=== PATIENT | female | born 1955 | race Caucasian/White ===

== ENCOUNTER 2025-08-14 08:24 | Day surgery (SDC) | payer MEDICARE, OTHER, SELFPAY ==
[2025-08-14] VITALS (17 sets, daily range): BP systolic 91–137; BP diastolic 53–82; PULSE 64–79; RESP 12–16; TEMP 36.2–36.6; O2SAT 91–96; BMI 29.0
[2025-08-14] MEDS: EPINEPHrine 1 MG in SODIUM CHLORIDE IRRIG SOLUTION 3,000 ML 9003 MG IRRIGATION ×4 (08:30→09:30)
[2025-08-14] MEDS: LACTATED RINGERS 1000 ML 1,000 ML 100 ML IV (08:30)
[2025-08-14] MEDS: SODIUM CHLORIDE 0.9 % (FLUSH) 10 ML SYRINGE IVF (09:06)
[2025-08-14] MEDS: MIDAZOLAM HCL 1 MG/ML inj IVP (10:10)
--- NOTE | 2025-08-14 10:17 | SUR.PREOP ---
TIME?OUT:?1010 PT/libia cardenas RN/shirin escobar MDA?VERIFICATION?OF?SURGICAL?SITE,?PROCEDURE,?AND?CONSENT OBTAINED?PRIOR?TO?INVASIVE?PROCEDURE.
--- NOTE | 2025-08-14 10:49 | W.PM.H&PU ---
History & Physical Update History & Physical Update H&P Reviewed and patient assessed: No changes noted
[2025-08-14] MEDS: LACTATED RINGERS 1000 ML 1,000 ML 125 ML IV (11:28)
[2025-08-14] MEDS: EPINEPHrine 1 MG in SODIUM CHLORIDE IRRIG SOLUTION 3,000 ML 4503 MG IRRIGATION (12:05)
--- NOTE | 2025-08-14 12:35 | P.ORPRC_ITS ---
Procedure Note Date of procedure: 08/14/25 Procedure: PREOPERATIVE DIAGNOSES: 1. Right shoulder rotator cuff tear. 2. Right shoulder long head of biceps partial-thickness tearing 3. Right shoulder AC degenerative joint disease, primary, moderate-severe 4. Right shoulder labral tearing 5. Right shoulder subacromial impingement syndrome. POSTOPERATIVE DIAGNOSES: 1. Right shoulder rotator cuff tear. 2. Right shoulder long head of biceps partial-thickness tearing 3. Right shoulder AC degenerative joint disease, primary, moderate-severe 4. Right shoulder labral tearing 5. Right shoulder subacromial impingement syndrome. NAME OF OPERATION: 1. Right shoulder arthroscopic rotator cuff repair - upper border subscapularis and high-grade partial-thickness longitudinal splitting of the supraspinatus mid tendon 2. Right shoulder arthroscopic long head of biceps tenodesis 3. Right shoulder arthroscopic distal clavicle excision 4. Right shoulder arthroscopic limited glenohumeral debridement 5. Right shoulder arthroscopic bursectomy, subacromial decompression/partial acromioplasty. SURGEON: Jaskaran Redmond MD BILINGUAL SPEECH LANGUAGE PATHOLOGIST: Robbie Guerra PA-C. Of note, a skilled human resources assistant manager was critical for this case to aide in patient positioning, suture manipulation, arm positioning, instrument positioning, and closure. ANESTHESIA: General plus preoperative supraclavicular block. EBL: 25 mL IMPLANTS: Arthrex 4.75 mm BioComposite SwiveLock suture anchor (x1) COMPLICATIONS: None evident INDICATIONS: The patient is a pleasant, 69-year-old female who has experienced right shoulder pain that has been increasing in recent time. Physical exam and imaging were consistent with a rotator cuff tear. Given their findings, as well as the weakness and pain, and inadequate response to nonoperative management, recommendation was made for surgery. FINDINGS: Exam under anesthesia revealed stable shoulder with excellent range of motion. The diagnostic arthroscopy revealed healthy chondral surfaces of the glenohumeral joint. The Subscapularis tendon was torn and a partial-thickness manner involving the proximal 8-10 mm with mild-moderate retraction. The long head of the biceps tendon was partially torn through the bicipital groove region and also subluxed/borderline dislocated out of the bicipital groove. The superior rotator cuff tendon was found to be torn in a high-grade partial- thickness manner with longitudinal splitting through the mid tendon over the articular surface. The tuberosity attachment was still intact and strong. The labrum was degeneratively frayed in the anterior and superior aspects. No loose bodies were identified within the pouch or subscapularis recess. PROCEDURE: Following a thorough discussion of risks, benefits, and alternatives, consent was obtained and the right shoulder was marked. The patient was brought to the operating room and placed supine on the operating table. Induction of anesthesia was completed after preoperative supraclavicular block was administered in preop holding. Appropriate time out was performed identifying proper patient, site, and procedure. 2 g IV Ancef was administered within 1 hour of incision preoperatively. The right upper extremity was prepped and draped in the appropriate sterile fashion using ChloraPrep prep. This was after the patient was positioned in the beach chair with their head in neutral alignment and all bony prominences well padded. The shoulder was insufflated with 20mL of normal saline via an 18g spinal needle from a posterior approach. An 11 blade skin incision allowed a blunt trochar to be inserted and diagnostic arthroscopy to be performed with the findings as noted above. An anterior portal was established with an outside in technique. This allowed the probe to be inserted and confirm the diagnostic arthroscopic findings. The shaver was then inserted and allowed debridement of the anterior and superior labrum as well as the biceps stump after the biceps tenodesis was performed. Additionally, the long of the biceps was released from the bicipital tuberosity for arthroscopic tenodesis as it was incorporated into the subscapularis repair anchor. The stump was debrided with a shaver as noted. Following this, the upper border subscapularis was repaired after debriding the lesser tuberosity with the shaver and [place] cautery. Subscapularis was captured in horizontal mattress fashion with a fiber tape suture. The tails were brought to a single anchor in the lesser tuberosity with excellent reapproximation of the subscap tendon and good excursion/tension. Thereafter, the subacromial space was entered. Here, a complete bursectomy and partial acromioplasty/subacromial decompression was performed with a combination of radiofrequency ablator, the shaver, and a 5.5 mm bur. Additionally, distal clavicle excision was performed with the bur. 8 mm of distal clavicle was resected based on the with of our bur. Further inspection of the supraspinatus and infraspinatus rotator cuff was performed. [This identified the tear as noted above. The tuberosity was probed multiple times and in multiple different arm positions to ensure that the insertion site was strong. Indeed this was the case. However, the supraspina tus showed longitudinal splitting of the mid tendon, which is consistent with what identified on the MRI. Given this longitudinal splitting, it was felt prudent to consider repair with [id number] suturing. The shoulder was placed through range of motion and found to be stable. The rotator cuff was re-probed and found to be stable. Instruments were removed. Excess fluid was drained, closure performed with 4-0 Monocryl and Steri-Strips. Dressings were applied. Sling was applied. The patient was awoken from anesthesia and transferred to the PACU in stable condition. A skilled human resources assistant manager was critical for this case to aid in patient positioning, limb positioning, skill to manipulate arthroscopic instruments and camera, suture management, patient safety, and closure. PLAN: 1. Elbow, forearm, wrist and digit range of motion as tolerated. 2. Encouraged ice. 3. Oxycodone for pain as needed. 4. Sling at all times except for ROM and showering. 5. Follow up with PA visit in 1-2 weeks for wound check. Initiate physical therapy following that visit for passive range of motion. Initiate active assisted range of motion at 4-6 weeks. May do pendulums now.
--- NOTE | 2025-08-14 12:38 | W.PM.NB ---
Nerve Block Nerve Block Time Seen by Provider: 10:10 Date Seen: 08/14/25 Type of block requested by surgeon for post-operative analgesia: supraclavicular Side: right Time out performed: Yes Verification of patient name: Yes Verification of date of : Yes Site marking: site marked Name of person performing procedure: Emeka Continuous monitoring Was continuous monitoring of O2 sat, B/P, vehicle monitor technician, recorded every 15 minutes?: Yes Procedure Checklist: sterile prep, needles and gloves Ultrasound guided. Images saved: Yes Medications given in 5ml increments after negative aspiration: Ropivicaine %: 0.5 mL: 20 Needle gauge: 22 Precedex (mcg): 25 Patient tolerated procedure well: Yes Block Charges Block Charge (with Pro Fee): Brachial Plexus Use of Ultrasound Machine for Block: Yes- US Guidance/pain block
--- NOTE | 2025-08-14 12:39 | P.ANES_ITS ---
Anesthesia Charges Start Date/Time Anesthesia Start Date: 08/14/25 Anesthesia Start Time: 10:38 Stop Date/Time Anesthesia Stop Date: 08/14/25 Anesthesia Stop Time: 13:01 Summary Extremes of Age - Over 70 or under 1: MDA Coding CPT Codes CPT Codes: ANESTH SURGERY OF SHOULDER - 96358 ([id number]) P3 - PATIENT W/SEVERE SYS DISEASE, QK - EXCHANGE ENGINEER 2-4 CNCRNT ANES PROC, QX - JOB PLACEMENT COUNSELOR SVC W/ MD MED DIRECTION Additional Codes: Summary - Extremes of Age - Over 70 or under 1: MDA ([id number])
--- NOTE | 2025-08-14 12:39 | W.ANESCHARGE ---
Anesthesia Charges Start Date/Time Anesthesia Start Date: 08/14/25 Anesthesia Start Time: 10:38 Stop Date/Time Anesthesia Stop Date: 08/14/25 Anesthesia Stop Time: 13:01 Summary Extremes of Age - Over 70 or under 1: MDA Coding CPT Codes CPT Codes: ANESTH SURGERY OF SHOULDER - 68103 ([id number]) P3 - PATIENT W/SEVERE SYS DISEASE, QK - ACID REGENERATOR 2-4 CNCRNT ANES PROC, QX - PLANER FEEDER SVC W/ MD MED DIRECTION Additional Codes: Summary - Extremes of Age - Over 70 or under 1: MDA ([id number])
--- NOTE | 2025-08-14 13:06 | P.ANES_ITS ---
Anesthesia Charges Start Date/Time Anesthesia Start Date: 08/14/25 Anesthesia Start Time: 10:38 Stop Date/Time Anesthesia Stop Date: 08/14/25 Anesthesia Stop Time: 13:01 Summary Extremes of Age - Over 70 or under 1: SUPERVISOR DETASSELING CREW Coding CPT Codes CPT Codes: ANESTH SURGERY OF SHOULDER - 59646 ([id number]) P3 - PATIENT W/SEVERE SYS DISEASE, QK - PRODUCTION MATERIAL COORDINATOR 2-4 CNCRNT ANES PROC Additional Codes: Summary - Extremes of Age - Over 70 or under 1: SUPERVISOR DETASSELING CREW ([id number])
--- NOTE | 2025-08-14 13:06 | W.ANESCHARGE ---
Anesthesia Charges Start Date/Time Anesthesia Start Date: 08/14/25 Anesthesia Start Time: 10:38 Stop Date/Time Anesthesia Stop Date: 08/14/25 Anesthesia Stop Time: 13:01 Summary Extremes of Age - Over 70 or under 1: STORAGE GARAGE MANAGER Coding CPT Codes CPT Codes: ANESTH SURGERY OF SHOULDER - 63936 ([id number]) P3 - PATIENT W/SEVERE SYS DISEASE, QK - BILL DISTRIBUTOR 2-4 CNCRNT ANES PROC Additional Codes: Summary - Extremes of Age - Over 70 or under 1: STORAGE GARAGE MANAGER ([id number])
[2025-08-14] MEDS: ONDANSETRON 2 MG/ML inj 4 MG IVP (14:45)
== END 2025-08-14 15:00 | disposition home or self-care (01) ==
LOC: OR 08:27
PROVIDERS: PCP Family Medicine; Visit Provider Orthopaedic Surgery Sports Medicine
PROC: (CPT 29805; principal; 2025-08-14 10:00)
DX: M75.111 Incomplete rotator cuff tear or rupture of right shoulder, not specified as traumatic (principal); S46.111A Strain of muscle, fascia and tendon of long head of biceps, right arm, initial encounter; M19.011 Primary osteoarthritis, right shoulder; S43.431A Superior glenoid labrum lesion of right shoulder, initial encounter; M75.41 Impingement syndrome of right shoulder; G89.18 Other acute postprocedural pain
CPT/HCPCS: 29827; 29828; 29826; 29824; 29822; 01630; 64415; 76942; 99100; C1713; J0169; J0330; J0690; J1100; J2250; J2371; J2405; J2704; J2795; J3010; J3490; J7120; L3670